=== PATIENT | female | born 1995 ===

== ENCOUNTER 2020-10-21 09:45 | Inpatient (IN) | payer OTHER ==
[~2020-10-21] VITALS: Ht 160 cm; Wt 62.6 kg
[2020-11-12] MEDS ORDERED: PRENATAL TABLE1 EAC1 PO (02:12)
== END 2020-11-14 11:47 | disposition home or self-care (01) | DRG 807 ==
LOC: OB/GYN 11-10 09:45 → LDR 11-12 00:18 → OB/GYN 11-12 13:30
PROVIDERS: ADMIT Specialist; ATTEND Specialist
PROC: 10E0XZZ Delivery of Products of Conception, External Approach (ICD-10-PCS; principal; 2020-11-12)
PROC: 4A1HXFZ Monitoring of Products of Conception, Cardiac Rhythm, External Approach (ICD-10-PCS; 2020-11-12)
DX: O98.82 Other maternal infectious and parasitic diseases complicating childbirth (principal); Z37.0 Single live birth; Z3A.39 39 weeks gestation of pregnancy; Z20.822 Contact with and (suspected) exposure to COVID-19